=== PATIENT | male | born 1935 | race Caucasian/White ===

== ENCOUNTER → 2018-05-29 | Outpatient (CLI) | payer OTHER ==
--- NOTE | 2018-05-29 16:14 | 2DMMODE ---
[place] [address] 2 D/M-MODE ECHOCARDIOGRAM Name: MONI LAZCANO JR Room: [facility]#: [id number] Admission: 05/29/18 Attend Phys: Dirk Tamayo Discharge: Date of : 35 Date of Service: 05/29/18 1613 Report #: [id number] THIS REPORT FOR: //name// APPROVED REPORT Study performed: 05/29/2018 13:04:10 EXAM: Comprehensive 2D, Doppler, and color-flow Echocardiogram Patient Location: Out-Patient BSA: 2.08 HR: 60 bpm BP: 90/60 mmHg Other Information Study Quality: Good Indications Peripheral Edema 2D Dimensions IVSd: 13.68 (7-11mm) LVOT Diam: 20.61 (18-24mm) LVDd: 44.56 mm PWd: 11.72 (7-11mm) Ascending Ao: 39.29 (22-36mm) LVDs: 25.97 (25-40mm) Aortic Root: 34.12 mm Volumes Left Atrial Volume (Systole) LA ESV Index: 26.10 mL/m2 Aortic Valve AoV Peak Alejandro.: 1.11 m/s AO Peak Gr.: 4.95 mmHg LVOT Max P.28 mmHg AO Mean Gr.: 2.54 mmHg LVOT Mean P.26 mmHg LVOT Max V: 0.75 m/s AO V2 VTI: 25.14 cm LVOT Mean V: 0.53 m/s QAMAR (VTI): 3.58 cm2 LVOT V1 VTI: 26.94 cm Mitral Valve E/A Ratio: 0.89 MV Decel. Time: 296.29 ms MV E Max Alejandro.: 0.65 m/s MV PHT: 85.92 ms MVA (PHT): 2.56 cm2 [place] [address] 2 D/M-MODE ECHOCARDIOGRAM Name: MONI LAZCANO JR [id number] Admission: 05/29/18 Attend Phys: Dirk Tamayo Discharge: Date of : 35 Date of Service: 05/29/18 1613 Report #: [id number] TDI E/Lateral E': 8.13 E/Medial E': 8.13 Medial E' Alejandro.: 0.08 m/s Lateral E' Alejandro.: 0.08 m/s Pulmonary Valve PV Peak Alejandro.: 1.01 m/s PV Peak Gr.: 4.04 mmHg Tricuspid Valve RAP Estimate: 5.00 mmHg TR Peak Gr.: 24.62 mmHg RVSP: 29.62 mmHg PA Pressure: 29.62 mmHg Left Ventricle The left ventricle is normal size. There is normal LV segmental wall motion. There is normal left ventricular wall thickness. Left ventricular systolic function is normal. The left ventricular ejection fraction is within the normal range. LVEF is 65%. Grade I - abnormal relaxation pattern. Right Ventricle The right ventricle is normal size. The right ventricular systolic function is normal. Atria The left atrium size is normal. The right atrium size is normal. Aortic Valve Aortic valve is mildly calcified. Trace aortic regurgitation. There is no aortic valvular stenosis. Mitral Valve The mitral valve is normal in structure. Trace mitral regurgitation. No evidence of mitral valve stenosis. Tricuspid Valve The tricuspid valve is normal in structure. Mild tricuspid regurgitation. Pulmonic Valve The pulmonary valve is normal in structure. There is no pulmonic valvular regurgitation. [place] [address] 2 D/M-MODE ECHOCARDIOGRAM Name: MONI LAZCANO JR Room: [facility]#: [id number] Admission: 05/29/18 Attend Phys: Dirk Tamayo Discharge: Date of : 35 Date of Service: 05/29/18 1613 Report #: [id number] The aortic root is normal in size. IVC is normal in size and collapses >50% with inspiration. Pericardium There is no pericardial effusion. <Conclusion> The left ventricle is normal size. There is normal left ventricular wall thickness. Left ventricular systolic function is normal. The left ventricular ejection fraction is within the normal range. LVEF is 65%. Grade I - abnormal relaxation pattern. The right ventricle is normal size. The left atrium size is normal. Aortic valve is mildly calcified. Trace aortic regurgitation. There is no aortic valvular stenosis. The mitral valve is normal in structure. Trace mitral regurgitation. The tricuspid valve is normal in structure. Mild tricuspid regurgitation. IVC is normal in size and collapses >50% with inspiration. There is no pericardial effusion. There is normal LV segmental wall motion. <ELECTRONICALLY SIGNED> By: Radames Cunha MD, FACC 05/29/18 1613 1613 1613 Radames Cunha MD, FACC /INF
== END ==
LOC: M.CRD 05-23 10:00
DX: I07.1 Rheumatic tricuspid insufficiency (principal); I35.8 Other nonrheumatic aortic valve disorders; R35.1 Nocturia